=== PATIENT | female | born 1965 | race Caucasian/White ===

== ENCOUNTER 2016-12-29 17:38 | Inpatient (IN) | payer OTHER ==
[~2016-12-29] VITALS: Ht 152.4 cm; Wt 58.0 kg
[2016-12-29 17:57] LABS: HEMATOCRIT 26.4 % (36.0-46.0); MCH 29.1 PG (29.0-34.0); MCHC 31.8 G/DL (30.0-36.0); MCV 91.3 FL (83-99); MEAN PLAT.VOLUME 9.1 uM^3 (9.5-12.4); PLATELET COUNT 347 K/uL (156-360); RBC DIS.WIDTH-CV 12.3 % (11.8-14.6); RBC DIS.WIDTH-SD 41.4 % (39-53); RED BLOOD COUNT 2.89 M/uL (3.80-5.20); WHITE BLOOD COUNT 6.8 K/uL (4.1-10.2)
[2016-12-29 18:10] LABS: CHLORIDE 100 mEq/L (99-109); POTASSIUM 3.9 mEq/L (3.7-5.4); SODIUM 135 mEq/L (136-147)
[2016-12-29 18:12] LABS: GLUCOSE 100 mg/dL (70-99)
[2016-12-29 18:13] LABS: ANION GAP 10 MEQ/L (2-14)
[2016-12-29 18:14] LABS: TOTAL BILIRUBIN 0.4 mg/dL (0.0-1.0)
[2016-12-29 18:15] LABS: ALKALINE PHOSPHATASE 62 IU/L (3-129); PROTHROMBIN TIME 10.2 (9.2-11.2)
[2016-12-29 18:16] LABS: GFR ESTIMATE (CALCULATED) > 59 mL/min/
[2016-12-29 18:17] LABS: DIRECT BILIRUBIN 0.1 mg/dL (0.0-0.3); UREA NITROGEN (BUN) 16 mg/dL (9-23)
[2016-12-29 18:19] LABS: LIPASE 37 U/L (1.0-51.0)
[2016-12-29 18:25] LABS: QUANTITATIVE HCG < 4.0 MIU/ML
[2016-12-29] MEDS ORDERED: VITAMIN D31000 UNI1 PO (18:33)
[2016-12-29] MEDS ORDERED: HYDROCORTISONE30 G2 TP (18:33)
[2016-12-29 18:51] LABS: ADD MIUA? YES; BILIRUBIN NEGATIVE; BLOOD MODERATE; COLOR STRAW ((YELLOW)); GLUCOSE (STRIP) NEGATIVE; KETONES NEGATIVE; LEUKOCYTES NEGATIVE; NITRITE NEGATIVE; PROTEIN (STRIP) NEGATIVE; SPECIFIC GRAVITY 1.004 (1.000-1.030); UROBILINOGEN 0.2 MG/DL (0.2-1.0)
[2016-12-29 18:56] LABS: BACTERIA NONE SEEN /HPF; EPITHELIAL CELLS NONE SEEN /HPF; MUCUS TRACE /LPF; RED BLOOD CELLS 0-5 /HPF (0-5); UCUL ADDED? NO; WHITE BLOOD CELLS 0-5 /HPF (0-5)
[2016-12-29 20:58] VITALS: BP 109/58
[2016-12-29 21:34] VITALS: BP 113/65
[2016-12-29 21:36] LABS: ANION GAP 7 MEQ/L (2-14); CHLORIDE 105 MEQ/L (99-109); POTASSIUM 3.7 MEQ/L (3.7-5.4); SAMPLE HEMOLYSIS CHECK 0; SAMPLE ICTERIC CHECK 0; SAMPLE LIPEMIA CHECK 0; SODIUM 138 MEQ/L (136-147); TOTAL BILIRUBIN 0.4 MG/DL (0.0-1.0)
[2016-12-29 21:42] LABS: ALKALINE PHOSPHATASE 59 IU/L (3-129); GFR ESTIMATE (CALCULATED) > 59 mL/min/; GLUCOSE 103 mg/dL (70-99); UREA NITROGEN (BUN) 12 mg/dL (9-23)
[2016-12-29 21:51] VITALS: BP 106/58
[2016-12-29 22:51] VITALS: BP 121/65
[2016-12-29 23:51] VITALS: BP 123/70
[2016-12-29 23:55] VITALS: BP 123/70
[2016-12-30] VITALS (13 sets, daily range): BP systolic 91–128; BP diastolic 51–75
[2016-12-30 07:11] LABS: MCH 29.9 PG (29.0-34.0); MCHC 33.3 G/DL (30.0-36.0); MCV 89.6 FL (83-99); MEAN PLAT.VOLUME 9.7 uM^3 (9.5-12.4); PLATELET COUNT 310 K/uL (156-360); RBC DIS.WIDTH-CV 13.2 % (11.8-14.6); RBC DIS.WIDTH-SD 43.2 % (39-53); RED BLOOD COUNT 3.35 M/uL (3.80-5.20); WHITE BLOOD COUNT 4.7 K/uL (4.1-10.2)
[2016-12-30 07:40] LABS: ALKALINE PHOSPHATASE 54 IU/L (3-129); DIRECT BILIRUBIN 0.2 mg/dL (0.0-0.3); TOTAL BILIRUBIN 1.4 MG/DL (0.0-1.0)
[2016-12-31] VITALS (7 sets, daily range): BP systolic 107–132; BP diastolic 56–83
[2016-12-31 15:05] LABS: HEMATOCRIT 34.4 % (36.0-46.0); MCV 90.5 FL (83-99)
[2016-12-31 16:02] LABS: ANION GAP 11 MEQ/L (2-14); CHLORIDE 102 MEQ/L (99-109); GFR ESTIMATE (CALCULATED) > 59 mL/min/; SAMPLE HEMOLYSIS CHECK 0; SAMPLE ICTERIC CHECK 0; SAMPLE LIPEMIA CHECK 0; SODIUM 136 MEQ/L (136-147); UREA NITROGEN (BUN) 7 mg/dL (9-23)
[2016-12-31 16:03] LABS: GLUCOSE 293 mg/dL (70-99)
[2016-12-31 16:57] LABS: POINT-OF-CARE METER ID UU14162508
[2016-12-31 22:34] LABS: POINT-OF-CARE METER ID UU14162508
[2017-01-01 03:16] VITALS: BP 122/86
[2017-01-01 06:42] LABS: MCH 29.9 PG (29.0-34.0); MCHC 33.4 G/DL (30.0-36.0); MCV 89.4 FL (83-99); MEAN PLAT.VOLUME 9.9 uM^3 (9.5-12.4); PLATELET COUNT 282 K/uL (156-360); RBC DIS.WIDTH-CV 13.6 % (11.8-14.6); RBC DIS.WIDTH-SD 44.6 % (39-53); RED BLOOD COUNT 3.58 M/uL (3.80-5.20); WHITE BLOOD COUNT 10.6 K/uL (4.1-10.2)
[2017-01-01 07:02] VITALS: BP 112/55
[2017-01-01 07:16] LABS: ANION GAP 9 MEQ/L (2-14); CHLORIDE 101 MEQ/L (99-109); GFR ESTIMATE (CALCULATED) > 59 mL/min/; SAMPLE HEMOLYSIS CHECK 0; SAMPLE ICTERIC CHECK 0; SAMPLE LIPEMIA CHECK 0; SODIUM 134 MEQ/L (136-147); UREA NITROGEN (BUN) 11 mg/dL (9-23)
[2017-01-01 07:20] LABS: GLUCOSE 137 mg/dL (70-99); POTASSIUM 3.8 MEQ/L (3.7-5.4)
[2017-01-01 13:11] VITALS: BP 113/56
[2017-01-01 16:00] VITALS: BP 125/67
[2017-01-01 20:18] VITALS: BP 108/55
[2017-01-01 23:20] VITALS: BP 110/57
[2017-01-02 06:07] LABS: HEMATOCRIT 29.8 % (36.0-46.0); MCH 30.2 PG (29.0-34.0); MCHC 33.9 G/DL (30.0-36.0); MCV 89.2 FL (83-99); MEAN PLAT.VOLUME 9.7 uM^3 (9.5-12.4); PLATELET COUNT 337 K/uL (156-360); RBC DIS.WIDTH-CV 13.3 % (11.8-14.6); RBC DIS.WIDTH-SD 43.2 % (39-53); RED BLOOD COUNT 3.34 M/uL (3.80-5.20); WHITE BLOOD COUNT 7.3 K/uL (4.1-10.2)
[2017-01-02 06:34] LABS: ANION GAP 7 MEQ/L (2-14); CHLORIDE 110 MEQ/L (99-109); GFR ESTIMATE (CALCULATED) > 59 mL/min/; GLUCOSE 106 mg/dL (70-99); POTASSIUM 3.8 MEQ/L (3.7-5.4); SAMPLE HEMOLYSIS CHECK 0; SAMPLE ICTERIC CHECK 0; SAMPLE LIPEMIA CHECK 0; UREA NITROGEN (BUN) 7 mg/dL (9-23)
[2017-01-02 06:37] LABS: SODIUM 144 MEQ/L (136-147)
[2017-01-02 07:22] VITALS: BP 130/75
== END 2017-01-02 12:57 | disposition home or self-care (01) | DRG 741 ==
LOC: EME 17:38 → 2EAST 18:00 → EDOF 18:00 → 2EAST 20:40
PROVIDERS: Emergency Medicine; Obstetrics & Gynecology Gynecologic Oncology; Obstetrics & Gynecology Gynecology
DX: C53.9 Malignant neoplasm of cervix uteri, unspecified (principal); C52 Malignant neoplasm of vagina; N85.2 Hypertrophy of uterus; D64.9 Anemia, unspecified; L30.9 Dermatitis, unspecified; N92.1 Excessive and frequent menstruation with irregular cycle; N73.6 Female pelvic peritoneal adhesions (postinfective)
CPT/HCPCS: 71020; 74177; 80048; 80053; 80076; 81003; 82378; 82948; 83690; 84702; 85014; 85018; 85027; 85610; 85730; 86304; 86900; 86901; 86920; 87086; 87491; 87591; 88305; 88309; 88341 TC; 88342 TC; 93005; 94799; 99281; 99284; C1758; J0131; J0330; J0690; J1100; J1170; J1650; J1885; J2250; J2405; J2710; J2765; J3010; J7030; J7120; P9016; P9040

== ENCOUNTER 2017-03-04 22:11 | Inpatient (IN) | payer OTHER ==
[~2017-03-04] VITALS: Ht 152.4 cm; Wt 50.0 kg
[~2017-03-04 22:11] MED LIST: DAILY VALUE1 EACH PO; HYDROCORTISONE30 G2 TP; PROBIOTIC1 EAC1 PO; VITAMIN D31000 UNI1 PO
[2017-03-04 23:12] LABS: HEMATOCRIT 36.2 % (36.0-46.0); MCH 28.7 PG (29.0-34.0); MCHC 32.9 G/DL (30.0-36.0); MCV 87.4 FL (83-99); MEAN PLAT.VOLUME 9.5 uM^3 (9.5-12.4); RBC DIS.WIDTH-CV 15.1 % (11.8-14.6); RBC DIS.WIDTH-SD 47.6 % (39-53); RED BLOOD COUNT 4.14 M/uL (3.80-5.20); WHITE BLOOD COUNT 2.3 K/uL (4.1-10.2)
[2017-03-04 23:19] LABS: CHLORIDE 103 mEq/L (99-109); POTASSIUM 3.7 mEq/L (3.7-5.4); SODIUM 139 mEq/L (136-147)
[2017-03-04 23:21] LABS: GLUCOSE 93 mg/dL (70-99)
[2017-03-04 23:23] LABS: ANION GAP 11 MEQ/L (2-14)
[2017-03-04 23:25] LABS: GFR ESTIMATE (CALCULATED) > 59 mL/min/
[2017-03-04 23:26] LABS: UREA NITROGEN (BUN) 13 mg/dL (9-23)
[2017-03-04 23:47] LABS: ADD MIUA? YES; BILIRUBIN NEGATIVE; BLOOD SMALL; COLOR STRAW ((YELLOW)); GLUCOSE (STRIP) NEGATIVE; KETONES NEGATIVE; LEUKOCYTES NEGATIVE; NITRITE NEGATIVE; PROTEIN (STRIP) NEGATIVE; SPECIFIC GRAVITY 1.004 (1.000-1.030); UROBILINOGEN 0.2 MG/DL (0.2-1.0)
[2017-03-04 23:51] LABS: BACTERIA RARE /HPF; EPITHELIAL CELLS RARE /HPF; MUCUS TRACE /LPF; RED BLOOD CELLS 0-5 /HPF (0-5); UCUL ADDED? NO; WHITE BLOOD CELLS 0-5 /HPF (0-5)
[2017-03-05 00:30] LABS: PLATELET COUNT ND K/uL (156-360)
[2017-03-05 00:31] LABS: ABS NEUTROPHIL COUNT 0.2; ANISOCYTOSIS 1+; EOSINOPHIL ABS CT 0; INSTRUMENT ABS NEUTROPHIL CT 0.1 K/uL; MACROCYTES 1+; OVALOCYTES 1+; PLAT.SUFFICIENCY ADEQUATE; PLATELET CLUMPS PRESENT - PLATELET COUNT APPEARS ADQ.
[2017-03-05] MEDS ORDERED: COMPAZINE10 MG PO (01:17)
[2017-03-05 06:00] VITALS: BP 98/51
[2017-03-05 06:50] VITALS: BP 90/52
[2017-03-05 15:19] LABS: ABS NEUTROPHIL COUNT 0.4; ANISOCYTOSIS 1+; ATYPICAL LYMPHOCYTE 6.2 %; BAND NEUTROPHILS 5.3 % (0-8.0); EOSINOPHIL ABS CT 0; HEMATOCRIT 34.7 % (36.0-46.0); INSTRUMENT ABS NEUTROPHIL CT 0.4 K/uL; LYMPHOCYTES 44.2 % (15.0-45.0); MACROCYTES 1+; MCH 30.2 PG (29.0-34.0); MCV 88.7 FL (83-99); MEAN PLAT.VOLUME 9.9 uM^3 (9.5-12.4); METAMYELOCYTES 0.9 %; PLAT.SUFFICIENCY DECREASED; PLATELET COUNT 139 K/uL (156-360); RBC DIS.WIDTH-CV 15.4 % (11.8-14.6); RBC DIS.WIDTH-SD 48.6 % (39-53); RED BLOOD COUNT 3.91 M/uL (3.80-5.20); SEG.NEUTROPHILS 42.5 % (46.0-76.0); WHITE BLOOD COUNT 0.9 K/uL (4.1-10.2)
== END 2017-03-05 16:13 | disposition home or self-care (01) | DRG 810 ==
LOC: EME 22:11 → EDOF 03-05 03:12 → ENRESERV 03-05 03:14 → 5EAST 03-05 05:21
PROVIDERS: Emergency Medicine; Internal Medicine Medical Oncology
DX: D70.9 Neutropenia, unspecified (principal); R50.81 Fever presenting with conditions classified elsewhere; C53.9 Malignant neoplasm of cervix uteri, unspecified; J45.909 Unspecified asthma, uncomplicated; L30.9 Dermatitis, unspecified; Z87.891 Personal history of nicotine dependence
CPT/HCPCS: 71020; 80048; 81003; 83605; 85025; 87040; 87086; 99281; 99285; C9113; J0692; J1650; J2930; J3370; J7030; J7050

== ENCOUNTER → 2017-12-01 | Outpatient (CLI) | payer OTHER ==
[~2017-12-01] MED LIST changes: +COMPAZINE10 MG PO
[2017-12-01 08:07] LABS: HEMATOCRIT 41.5 % (36.0-46.0); HEMOGLOBIN 14.2 G/DL (11.9-15.5); MCH 31.6 PG (29.0-34.0); MCHC 34.2 G/DL (30.0-36.0); MCV 92.2 FL (83-99); PLATELET COUNT 206 K/uL (156-360); RBC DIS.WIDTH-CV 13.4 % (11.8-14.6); RBC DIS.WIDTH-SD 46.1 % (39-53)
== END | disposition home or self-care (01) ==
LOC: OPR 11-30 09:00 → EDSTATUS 08:00 → OPR 08:00
PROVIDERS: Obstetrics & Gynecology Gynecologic Oncology
PROC: 07BB3ZX Excision of Mesenteric Lymphatic, Percutaneous Approach, Diagnostic (ICD-10-PCS; principal; 2017-12-01)
DX: C77.2 Secondary and unspecified malignant neoplasm of intra-abdominal lymph nodes (principal); Z85.42 Personal history of malignant neoplasm of other parts of uterus; Z85.41 Personal history of malignant neoplasm of cervix uteri; Z92.21 Personal history of antineoplastic chemotherapy; Z92.3 Personal history of irradiation
CPT/HCPCS: 77012; 85027; 85610; 85730; 88305; 88341 TC; 88342 TC